=== PATIENT | female | born 1995 | race Caucasian/White ===

== ENCOUNTER 2024-01-06 16:44 | Observation (INO) | payer OTHER, SELFPAY ==
--- NOTE | ~2024-01-06 | XR_ITS ---
CHEST RADIOGRAPH, PA AND LATERAL CLINICAL HISTORY: cough, CHEST PAINS, HX OF ASTHMA . COMPARISON: None available TECHNIQUE: PA and lateral views of the chest. FINDINGS The cardiomediastinal silhouette is unremarkable. The lungs are clear. Visualized osseous structures and soft tissues are unremarkable. IMPRESSION: No focal infiltrate or effusion. Reviewed, dictated and finalized at location A. IC SERVICES ASSISTANT
--- NOTE | ~2024-01-06 | CT_ITS ---
Clinical Indication: Shortness of breath CT Scan of the Chest with Contrast: Technique: Contiguous sections were acquired throughout the chest after intravenous administration of 100 cc of Omnipaque 350. Dose reduction technique was used on this scan by utilizing automated expos ure control and iterative reconstruction technique. The dose-length product (DLP) was 204.79 mGy-cm. Findings: There is no evidence of any significant mediastinal, hilar or axillary lymphadenopathy. There is no f illing defect in the pulmonary arterial tree to suggest pulmonary embolus. There is no evidence of ao rtic dissection or aneurysm. No pericardial effusion. Minimal left pleural effusion present. No right pleural effusion. There is patchy left lower lobe consolidation, compatible with pneumonia. Remainder of the lungs are clear. Images through the upper abdomen reveal no abnormalities. Impression: No evidence of pulmonary embolus, aortic dissection, or aortic aneurysm. Left lower lobe pneumonia. Minimal left pleural effusion. Reviewed, dictated and finalized at [facility]. STAGE ARCHITECT Impression: No evidence of pulmonary embolus, aortic dissection, or aortic aneurysm. Left lower lobe pneumonia. Minimal left pleural effusion.
[2024-01-06 16:47] VITALS: BP 126/75; PULSE 92; RESP 16; TEMP 36.4; O2SAT 100
--- NOTE | 2024-01-06 16:49 | ED_ITS ---
HPI - URI/Sore Throat General Chief Complaint: Upper Respiratory Infection <FRANCISCO Caro Last Filed: 01/08/24 09:09> Stated Complaint: cough congestion <FRANCISCO Caro Last Filed: 01/08/24 09:09> Time Seen by Provider: 01/06/24 16:49 <FRANCISCO Caro Last Filed: 01/08/24 09:09> Focused HPI: this is a 28-year-old female that presents to the emergency department for cold symptoms present over the last couple of weeks. Reports cough, congestion, rhinorrhea. Denies fevers. GENERAL: Well-appearing, well-nourished, and in no acute distress. HEAD: Normocephalic, atraumatic. CHEST: No respiratory distress. Expiratory wheezing HEART: Regular rate and rhythm.? NEURO: ?Alert and oriented x3. Patient screened in triage and initial orders placed.? ?Additional care and disposition to be based upon?diagnostic testing and treatment. <FRANCISCO Caro Last Filed: 01/08/24 09:09> Focused HPI: this is a 28-year-old female that presents to the emergency department for cold symptoms present over the last couple of weeks. Reports cough, congestion, rhinorrhea. Denies fevers. GENERAL: Well-appearing, well-nourished, and in no acute distress. HEAD: Normocephalic, atraumatic. CHEST: No respiratory distress. Expiratory wheezing HEART: Regular rate and rhythm.? NEURO: ?Alert and oriented x3. Patient screened in triage and initial orders placed.? ?Additional care and disposition to be based upon?diagnostic testing and treatment. <FRANCISCO Morgan Last Filed: 01/07/24 03:31> Source: patient <FRANCISCO Morgan Last Filed: 01/07/24 03:31> Mode of arrival: ambulatory <FRANCISCO Morgan Last Filed: 01/07/24 03:31> Limitations: no limitations <FRANCISCO Morgan Last Filed: 01/07/24 03:31> History of Present Illness HPI Narrative: Agree with above HPI. History of asthma. States she has been sick for 2 weeks. Has only been taking Tylenol and ibuprofen at home. Reports persistent fevers, chest tightness, shortness of breath. Denies sick contacts. Patient is currently . Patient was seen at [place] the ED 2 days ago, had negative viral swabs, negative chest x-ray and was discharged home with diagnosis of viral infection. <Kamryn Stone PA-C - Last Filed: 01/07/24 03:31> Related Data Home Medications: Home Medications Medication Instructions Recorded Confirmed albuterol sulfate 90 mcg/actuation 90 mcg inhalation PRN PRN 01/08/24 01/08/24 aerosol inhaler Shortness Of Breath Or Wheezing <Zoila Francisco PA-C - Last Filed: 01/08/24 09:09> Allergies/Adverse Reactions: Allergies Allergy/AdvReac Type Severity Reaction Status Date / Time No Known Allergies Allergy Verified 01/07/24 05:27 <Zoila Francisco PA-C - Last Filed: 01/08/24 09:09> Review of Systems Review of Systems: All systems reviewed & are unremarkable except as noted in HPI. <Kamryn Stone PA-C - Last Filed: 01/07/24 03:31> All systems reviewed & are unremarkable except as noted in HPI and below <Kamryn Stone PA-C - Last Filed: 01/07/24 03:31> PMFSH Past Medical History Medical History: Medical History Asthma <Zoila Francisco PA-C - Last Filed: 01/08/24 09:09> Social History Social History: Social History Smoking status: Never smoker Alcohol intake: never Substance use: never Do You Feel Safe in your Home?: Yes Lack of Transportation: No Lack of Food: Never True Current Housing: I Have Housing Concerned About Future Housing: No Difficulty Paying Gas/Electric Bills: No Difficulty Paying for Meds: No Currently Unemployed: No Education: High School Diploma/GED Difficulty w/ Childcare or Family Care: No Spiritual care concerns: No <Zoila Francisco PA-C - Last Filed: 01/08/24 09:09> Exam Narrative: GENERAL: Mildly ill appearing, well-nourished, non-toxic, in no acute distress. HEAD: Normocephalic, atraumatic. RESPIRATORY: Airway patent, respirations nonlabored. Scattered expiratory wheezing. Frequent coughing. No distress. CARDIOVASCULAR: Tachycardic with regular rhythm without murmurs, rubs, or gallops. ABDOMINAL: Soft, nontender, nondistended. Normoactive BS. MUSCULOSKELETAL: Moves all extremities. No gross deformities. No peripheral edema. SKIN: Warm, dry, somewhat flushed appearing. NEURO: A&O X3. Speech clear. No ataxic movements. PSYCHIATRIC: Appropriate mood and affect. Normal interaction. <FRANCISCO Morgan Last Filed: 01/07/24 03:31> Course Vital Signs Vital signs: Vital Signs Temperature 97.6 F 01/06/24 16:47 Pulse Rate 92 01/06/24 16:47 Respiratory Rate 16 01/06/24 16:47 Blood Pressure 126/75 01/06/24 16:47 Pulse Oximetry 100 01/06/24 16:47 Temperature 97.1 F L 01/08/24 06:00 Pulse Rate 86 01/08/24 06:00 Respiratory Rate 18 01/08/24 06:00 Blood Pressure 108/72 01/08/24 06:00 Pulse Oximetry 96 01/08/24 06:00 Oxygen Delivery Room Air 01/07/24 20:36 <Zoila Francisco PA-C - Last Filed: 01/08/24 09:09> Vital Signs Temperature 97.6 F 01/06/24 16:47 Pulse Rate 92 01/06/24 16:47 Respiratory Rate 16 01/06/24 16:47 Blood Pressure 126/75 01/06/24 16:47 Pulse Oximetry 100 01/06/24 16:47 Temperature 97.1 F L 01/08/24 06:00 Pulse Rate 86 01/08/24 06:00 Respiratory Rate 18 01/08/24 06:00 Blood Pressure 108/72 01/08/24 06:00 Pulse Oximetry 96 01/08/24 06:00 Oxygen Delivery Room Air 01/07/24 20:36 <Kamryn Stone PA-C - Last Filed: 01/07/24 03:31> MDM - URI/Sore Throat MDM Narrative Medical decision making narrative: Patient presented to ED with 2 week history of URI symptoms, persistent fevers. History of asthma. Patient tachycardic and febrile at the time of my evaluation. Oxygen ranging from 92-95% on room air. There was expiratory wheezing noted on exam. Continuous nebulizer treatment ordered. Laboratory studies fairly unremarkable. No leukocytosis. Stable H&H. Stable electrolytes. Viral swabs are negative. Chest x-ray is clear. EKG with normal sinus rhythm, no significant ST changes. Troponin is undetectable. D-dimer did result elevated to 1.18. CTA of chest obtained and showing LLQ PNA. No PE. Consistent with clinical picture. Patient will be started on abx. Patient's heart rate persistently in the 120s after nebulizer treatment. She do es feel as though her heart is racing. Persistent tachypnea. Clinically, patient looks unwell. At this time, patient meeting sepsis criteria. Will order additional fluids, blood cx, start iv abx and admit for further eval. Discussed case with Dr. Davenport, hospitalist, accepted patient for admission. Patient in agreement with plan and admission. <Kamryn Stone PA-C - Last Filed: 01/07/24 03:31> Medical Records Attestation: I reviewed the patient's medical records. <Kamryn Stone PA-C - Last Filed: 01/07/24 03:31> Lab Data Attestation: I reviewed the patient's lab results. <Kamryn Stone PA-C - Last Filed: 01/07/24 03:31> Result diagrams: 01/07/24 00:25 01/07/24 00:25 <Zoila Francisco PA-C - Last Filed: 01/08/24 09:09> Labs: Lab Results 01/06/24 01/07/24 01/07/24 Range/Units 16:58 00:25 01:27 WBC 8.5 (4.5-10.0) K/mm3 RBC 3.86 L (4.2-5.4) M/mm3 Hgb 11.7 L (12.0-15.0) g/dL Hct 34.4 L (37.0-47.0) % MCV 89.1 (80-100) fl MCH 30.3 (26-34) pg MCHC 34.0 (32-36) g/dl RDW 11.8 (11.5-14.5) % Plt Count 351 (150-375) k/mm3 MPV 9.0 (7.4-10.4) fl Immature Gran % (Auto) 0.5 (0-0.5) % Neut % (Auto) 76.3 H (45.5-73.1) % Lymph % (Auto) 13.5 L (18.3-44.2) % [place] % (Auto) 5.6 (2.6-8.5) % Eos % (Auto) 3.6 (0-4.4) % Baso % (Auto) 0.5 (0.2-1.2) % Lymph # (Auto) 1.14 (0.9-3.2) K/mm3 [place] # (Auto) 0.5 (0.1-0.6) K/mm3 Eos # (Auto) 0.3 (0-0.3) K/mm3 Baso # (Auto) 0.0 (0.0-0.1) K/mm3 Abs Immat Gran (auto) 0.04 H (0.00-0.031) K/mm3 Absolute Neuts (auto) 6.5 (1.3-6.7) K/mm3 Absolute Nucleated RBC 0.000 (0.0-0.012) K/mm3 Nucleated RBC % 0.0 (0.0-0.2) % PT 14.7 (11.1-14.7) Seconds INR 1.1 APTT 32.3 (22.3-36.8) Seconds D-Dimer 1.18 H (<0.48) ug/mL Sodium 137 (137-145) mmol/L Potassium 4.6 (3.4-5.0) mmol/L Chloride 102 (98-107) mmol/L Carbon Dioxide 26 (22-30) mmol/L Anion Gap 9 (4-12) mmol/L BUN 7 (7-17) mg/dL Creatinine 0.60 L (0.7-1.0) mg/dL Estim Creat Clear Calc 104 ml/min Estimated GFR > 60 (59 - ) Glucose 126 H (65-110) mg/dL Calcium 9.4 (8.4-10.2) mg/dL Total Bilirubin 0.4 (0.2-1.3) mg/dL AST 22 (14-36) U/L ALT 15 (6-35) U/L Alkaline Phosphatase 57 (38-126) U/L Troponin I < 0.012 (0.000-0.034) ng/mL Total Protein 8.0 (6.3-8.2) g/dL Albumin 4.3 (3.5-5.1) g/dL POC Urine HCG, Qual Negative (Negative) Influenza A (RT-PCR) Negative (Negative) Influenza B (RT-PCR) Negative (Negative) RSV (RT-PCR) Negative (Negative) SARS-CoV-2 RNA (RT-PCR) Negative (Negative) <Zoila Francisco PA-C - Last Filed: 01/08/24 09:09> Lab Results 01/06/24 01/07/24 01/07/24 Range/Units 16:58 00:25 01:27 WBC 8.5 (4.5-10.0) K/mm3 RBC 3.86 L (4.2-5.4) M/mm3 Hgb 11.7 L (12.0-15.0) g/dL Hct 34.4 L (37.0-47.0) % MCV 89.1 (80-100) fl MCH 30.3 (26-34) pg MCHC 34.0 (32-36) g/dl RDW 11.8 (11.5-14.5) % Plt Count 351 (150-375) k/mm3 MPV 9.0 (7.4-10.4) fl Immature Gran % (Auto) 0.5 (0-0.5) % Neut % (Auto) 76.3 H (45.5-73.1) % Lymph % (Auto) 13.5 L (18.3-44.2) % [place] % (Auto) 5.6 (2.6-8.5) % Eos % (Auto) 3.6 (0-4.4) % Baso % (Auto) 0.5 (0.2-1.2) % Lymph # (Auto) 1.14 (0.9-3.2) K/mm3 [place] # (Auto) 0.5 (0.1-0.6) K/mm3 Eos # (Auto) 0.3 (0-0.3) K/mm3 Baso # (Auto) 0.0 (0.0-0.1) K/mm3 Abs Immat Gran (auto) 0.04 H (0.00-0.031) K/mm3 Absolute Neuts (auto) 6.5 (1.3-6.7) K/mm3 Absolute Nucleated RBC 0.000 (0.0-0.012) K/mm3 Nucleated RBC % 0.0 (0.0-0.2) % PT 14.7 (11.1-14.7) Seconds INR 1.1 APTT 32.3 (22.3-36.8) Seconds D-Dimer 1.18 H (<0.48) ug/mL Sodium 137 (137-145) mmol/L Potassium 4.6 (3.4-5.0) mmol/L Chloride 102 (98-107) mmol/L Carbon Dioxide 26 (22-30) mmol/L Anion Gap 9 (4-12) mmol/L BUN 7 (7-17) mg/dL Creatinine 0.60 L (0.7-1.0) mg/dL Estim Creat Clear Calc 104 ml/min Estimated GFR > 60 (59 - ) Glucose 126 H (65-110) mg/dL Calcium 9.4 (8.4-10.2) mg/dL Total Bilirubin 0.4 (0.2-1.3) mg/dL AST 22 (14-36) U/L ALT 15 (6-35) U/L Alkaline Phosphatase 57 (38-126) U/L Troponin I < 0.012 (0.000-0.034) ng/mL Total Protein 8.0 (6.3-8.2) g/dL Albumin 4.3 (3.5-5.1) g/dL POC Urine HCG, Qual Negative (Negative) Influenza A (RT-PCR) Negative (Negative) Influenza B (RT-PCR) Negative (Negative) RSV (RT-PCR) Negative (Negative) SARS-CoV-2 RNA (RT-PCR) Negative (Negative) <Kamryn Stone PA-C - Last Filed: 01/07/24 03:31> Imaging Data Attestation: I personally reviewed and interpreted this imaging study as follows: <Kamryn Stone PA-C - Last Filed: 01/07/24 03:31> Radiologist's impression: STAT RAD CTA Chest: Impression: No acute pulmonary embolism. Airspace consolidation in the left lower lobe, concerning for pneumonia. ITS Impressions Chest X-Ray 01/06/24 18:24 IMPRESSION: No focal infiltrate or effusion. <Zoila Francisco PA-C - Last Filed: 01/08/24 09:09> STAT RAD CTA Chest: Impression: No acute pulmonary embolism. Airspace consolidation in the left lower lobe, concerning for pneumonia. <Kamryn Stone PA-C - Last Filed: 01/07/24 03:31> ECG Data EKG #1: Attestation: I personally reviewed and interpreted this ECG as follows: <Kamryn Stone PA-C - Last Filed: 01/07/24 03:31> ECG completion date: 01/07/24 <Kamryn Stone PA-C - Last Filed: 01/07/24 03:31> ECG completion time: 00:15 <Kamryn Stone PA-C - Last Filed: 01/07/24 03:31> EKG Interpretation: normal rate (93), sinus rhythm, no ST changes and other (baseline artifact) <Kamryn Stone PA-C - Last Filed: 01/07/24 03:31> Critical Care Time Critical Care Time Critical Care Time: No <Zoila Francisco PA-C - Last Filed: 01/08/24 09:09> Discharge Plan Discharge Clinical Impression: Pneumonia Qualifiers: Pneumonia type: due to unspecified organism Laterality: left Lung location: low er lobe of lung Qualified Code(s): J18.9 - Pneumonia, unspecified organism Sepsis Qualifiers: Sepsis type: sepsis due to unspecified organism Sepsis acute organ dysfunction status: unspecified Qualified Code(s): A41.9 - Sepsis, unspecified organism Asthma Qualifiers: Asthma severity: unspecified severity Asthma persistence: unspecified Asthma complication type: unspecified Qualified Code(s): J45.909 - Unspecified asthma, uncomplicated <Zoila Francisco PA-C - Last Filed: 01/08/24 09:09> Patient Disposition: Still a Patient <Zoila Francisco PA-C - Last Filed: 01/08/24 09:09> Condition: Stable <Zoila Francisco PA-C - Last Filed: 01/08/24 09:09>
--- NOTE | 2024-01-06 17:05 | PCRCNOTE ---
Tx given in ED room 18; Pt. not assigned a room yet.
[2024-01-06 17:08] VITALS: PULSE 92; RESP 18
[2024-01-06] MEDS: IPRATROPIUM 0.5 MG/ALBUTEROL SULFATE 2.5 MG AMPUL.NEB 3 ML INHALATION (17:08)
[2024-01-06 17:18] VITALS: PULSE 100; RESP 18
[2024-01-06 17:55] LABS: Influenza A QL RT-PCR Negative (Negative); Influenza B QL RT-PCR Negative (Negative); RSV RNA, RT-PCR Negative (Negative); SARS-CoV-2 RNA PCR Negative (Negative)
[2024-01-06 19:28] VITALS: BP 111/69; PULSE 122; RESP 24; TEMP 38.3; O2SAT 99
[2024-01-06] MEDS: predniSONE 20 MG TABLET 40 MG PO (22:51)
[2024-01-07] VITALS (16 sets, daily range): BP systolic 98–124; BP diastolic 54–73; PULSE 92–124; RESP 18–22; TEMP 36–37.8; O2SAT 92–97
--- NOTE | 2024-01-07 00:06 | ECG_ITS ---
Test Date: 2024-01-07 00:15:57 Measurements Intervals [place] Rate: 93 P: 56 OR: 158 QRS: 65 QRSD: 79 T: 44 QT: 328 QTc: 409 Interpretive Statements SINUS RHYTHM BASELINE ARTIFACT- I, II, III, AVR, AVL, AVF NORMAL ECG No previous ECG available for comparison Electronically Signed On 01-07-2024 05:34:54 SEARCH AND RESCUE OFFICER by Gama Lopez D.O.
[2024-01-07] MEDS: ACETAMINOPHEN 500 MG TABLET 1000 MG PO (00:22)
[2024-01-07] MEDS: SODIUM CHLORIDE 0.9% IV 1,000 ML 999 ML IV CONT ×2 (00:23→03:59)
[2024-01-07] MEDS: IPRATROPIUM BR 0.02% INH SOLN 0.5 MG/2.5 ML VIAL 1.5 MG INHALATION (00:30)
[2024-01-07] MEDS: LEVALBUTEROL NEB 1.25 MG/3 ML 2.5 MG INHALATION (00:30)
[2024-01-07 00:43] LABS: Alanine Aminotransferase 15 U/L (6-35); Albumin Level 4.3 g/dL (3.5-5.1); Alkaline Phosphatase 57 U/L (38-126); Anion Gap 9 mmol/L (4-12); Aspartate Amino Transferase 22 U/L (14-36); Bilirubin,Total 0.4 mg/dL (0.2-1.3); Blood Urea Nitrogen 7 mg/dL (7-17); Calcium 9.4 mg/dL (8.4-10.2); Carbon Dioxide 26 mmol/L (22-30); Chloride 102 mmol/L (98-107); Estimated CRCL calculation 104 ml/min; Estimated Glomerular Filt Rate > 60; Glucose 126 mg/dL (65-110); Potassium 4.6 mmol/L (3.4-5.0); Sodium 137 mmol/L (137-145)
[2024-01-07 00:45] LABS: INR 1.1; Prothrombin Time 14.7 Seconds (11.1-14.7)
[2024-01-07 00:46] LABS: Basophils Percent Auto 0.5 % (0.2-1.2); Eosinophils Absolute Auto 0.3 K/mm3 (0-0.3); Eosinophils Percent Auto 3.6 % (0-4.4); Hematocrit 34.4 % (37.0-47.0); Hemoglobin 11.7 g/dL (12.0-15.0); Immature Granulocyte Absolute 0.04 K/mm3 (0.00-0.031); Immature Granulocyte Percent A 0.5 % (0-0.5); Lymphocytes Absolute Auto 1.14 K/mm3 (0.9-3.2); Lymphocytes Percent Auto 13.5 % (18.3-44.2); Mean Corpuscular Hemoglobin 30.3 pg (26-34); Mean Corpuscular Volume 89.1 fl (80-100); Monocytes Absolute Auto 0.5 K/mm3 (0.1-0.6); Monocytes Percent Auto 5.6 % (2.6-8.5); Neutrophils Absolute Auto 6.5 K/mm3 (1.3-6.7); Neutrophils Percent Auto 76.3 % (45.5-73.1); Partial Thromboplastin Time 32.3 Seconds (22.3-36.8); Platelet Count Result 351 k/mm3 (150-375); Red Blood Count 3.86 M/mm3 (4.2-5.4); Red Cell Distribution Width 11.8 % (11.5-14.5); White Blood Count 8.5 K/mm3 (4.5-10.0)
[2024-01-07 00:54] LABS: Troponin I < 0.012 ng/mL (0.000-0.034)
[2024-01-07 00:56] LABS: D Dimer 1.18 ug/mL (<0.48)
[2024-01-07 01:28] LABS: BEDSIDEPREGUCG Negative (Negative)
[2024-01-07] MEDS: AZITHROMYCIN 500 MG/NS 250 ML 500 MG/250 ML BAG 250 MG IVPB (05:57)
[2024-01-07] MEDS: SODIUM CHLORIDE 0.9% IV 1,000 ML 75 ML IV CONT ×2 (05:57→21:07)
[2024-01-07] MEDS: IPRATROPIUM 0.5 MG/ALBUTEROL SULFATE 2.5 MG AMPUL.NEB 3 ML INHALATION ×3 (07:12→20:34)
--- NOTE | 2024-01-07 07:28 | P.HP_ITS ---
H&P: HPI History of Present Illness Date/Time: 01/07/24 07:28 Chief Complaint: Sore throat Upper respiratory infection Narrative: This is a 28-year-old female with a significant past medical history of asthma who presented to the hospital with chief complaint of sore throat and upper respiratory infection. Patient reports the following history of presenting illness. Patient states that she has been sick for the past 2 weeks and originally presented to [place] ED 2 days ago and had negative viral swab, negative chest x-ray and was discharged home with viral infection. She presented today with heart rate of 122, temperature 101, respiratory rate 24 meeting sepsis criteria. Patient denies any body aches, nausea, vomiting, diarrhea, abdominal pain, chest pain, or shortness of breath. She does report f ever with chills and generalized malaise. Workup in the hospital included a chest x-ray which was negative for infiltrate or effusion. Chest CTA was negative for PE, aortic dissection, aortic aneurysm, left lower lobe pneumonia, minimal left pleural effusion. Initial labs showed a normal white blood cell count of 8.5, hemoglobin 11.7, D-dimer 1.18, creatinine 0.60, troponin negative. Respiratory panel was negative for influenza a and B, RSV, COVID. Blood cultures were obtained and are pending. EKG showed sinus rhythm with a rate of 93, QTC 409. Patient was started on prednisone, given DuoNeb, Xopenex, Atrovent breathing treatments, given 2 L normal saline, started on Rocephin and azithromycin. Review of Systems Review of Systems: All systems reviewed & are unremarkable except as noted in HPI and below Constitutional: Constitutional: Reports as per HPI and Reports no additional constitutional complaints Eyes: Eyes: Reports as per HPI and Reports no additional eye complaints ENT: Reports system reviewed and no additional complaints, except as documented and Reports as per HPI Cardiovascular: Cardiovascular: Reports as per HPI and Reports no additional cardiovascular complaints Respiratory: Respiratory: Reports as per HPI and Reports no additional respiratory complaints Gastrointestinal: Gastrointestinal: Reports as per HPI and Reports no additional gastrointestinal complaints Genitourinary: Genitourinary: Reports no additional female genitourinary complaints and Reports as per HPI Musculoskeletal: Musculoskeletal: Reports no additional musculoskeletal complaints and Reports as per HPI Integumentary/Breasts: Skin/Breast: Reports system reviewed and no additional complaints, except as docu and Reports as per HPI Neurologic: Reports system reviewed and no additional complaints, except as documented and Reports as per HPI Psychiatric: Psychiatric: Reports no additional psychiatric complaints and Reports as per HPI [facility] Past Medical History Medical History Asthma Social History Social History Smoking status: Never smoker Alcohol intake: never Substance use: never Do You Feel Safe in your Home?: Yes Lack of Transportation: No Lack of Food: Never True Current Housing: I Have Housing Concerned About Future Housing: No Difficulty Paying Gas/Electric Bills: No Difficulty Paying for Meds: No Currently Unemployed: No Education: High School Diploma/GED Difficulty w/ Childcare or Family Care: No Spiritual care concerns: No Meds Home Medications and Allergies Allergies Allergy/AdvReac Type Severity Reaction Status Date / Time No Known Allergies Allergy Verified 01/07/24 05:27 Vital Signs Vital Signs - 24 hr 01/06/24 16:47 01/06/24 17:08 01/06/24 17:18 Temperature 97.6 F Pulse Rate 92 92 100 Respiratory Rate 16 18 18 Blood Pressure 126/75 Pulse Oximetry 100 Oxygen Delivery 01/06/24 19:28 01/07/24 00:05 01/07/24 00:32 Temperature 101.0 F H 100.1 F H Pulse Rate 122 H 101 H 92 Respiratory Rate 24 H 18 18 Blood Pressure 111/69 105/69 Pulse Oximetry 99 94 Oxygen Delivery 01/07/24 00:32 01/07/24 00:15 01/07/24 02:00 Temperature Pulse Rate 98 124 H Respiratory Rate 22 H 20 Blood Pressure 112/73 98/54 L Pulse Oximetry 96 92 Oxygen Delivery Room Air 01/07/24 02:40 01/07/24 03:46 01/07/24 05:29 Temperature 98.1 F 96.8 F L Pulse Rate 114 H 104 H Respiratory Rate 18 Blood Pressure 117/70 114/66 Pulse Oximetry 95 97 Oxygen Delivery 01/07/24 06:50 Temperature Pulse Rate Respiratory Rate Blood Pressure Pulse Oximetry Oxygen Delivery Room Air Exam Narrative: General: In no acute distress, well nourished Head: atraumatic, no encephalopathy Eyes: PERRLA, sclera clear ENT: moist mucous membranes, nasal passages clear Neck: supple, no JVD, no adenopathy, trachea midline Cardiac: Normal S1 and S2. No murmur, gallops or friction rubs, peripheral pulses intact. Respiratory:Expiratory wheezing with rhonchi throughout all lung lipscomb, currently on room air Gastrointestinal: soft, non-distended, non-tender, normoactive bowel sounds. : voiding without difficulty. Extremities: moves all extremities well, no edema, good ROM, strength 5/5 Skin: clean, dry, intact. No wounds or lesions. Neuro: Alert and oriented x4, cranial nerves intact, no neuro deficits. Psych: normal mood, normal affect, interactive H&P: Results Labs Labs: Short CBC 01/07/24 Range/Units 00:25 WBC 8.5 (4.5-10.0) K/mm3 Hgb 11.7 L (12.0-15.0) g/dL Hct 34.4 L (37.0-47.0) % Plt Count 351 (150-375) k/mm3 BMP 01/07/24 00:25 Sodium 137 Potassium 4.6 Chloride 102 Carbon Dioxide 26 BUN 7 Creatinine 0.60 L Glucose 126 H Calcium 9.4 Cardiac Enzymes 01/07/24 Range/Units 00:25 Troponin I < 0.012 (0.000-0.034) ng/mL Liver Function 01/07/24 Range/Units 00:25 Total Bilirubin 0.4 (0.2-1.3) mg/dL AST 22 (14-36) U/L ALT 15 (6-35) U/L Alkaline Phosphatase 57 (38-126) U/L Albumin 4.3 (3.5-5.1) g/dL Imaging Chest x-ray: Radiologist's impression: CHEST RADIOGRAPH, PA AND LATERAL CLINICAL HISTORY: cough, CHEST PAINS, HX OF ASTHMA . COMPARISON: None available TECHNIQUE: PA and lateral views of the chest. FINDINGS The cardiomediastinal silhouette is unremarkable. The lungs are clear. Visualized osseous structures and soft tissues are unremarkable. IMPRESSION: No focal infiltrate or effusion. Reviewed, dictated and finalized at location A. [place] MEDIA PROJECT MANAGER Chest CTA: Radiologist's impression: CT Scan of the Chest with Contrast: Technique: Contiguous sections were acquired throughout the chest after intravenous administration of 100 cc of Omnipaque 350. Dose reduction technique was used on this scan by utilizing automated exposure control and iterative reconstruction technique. The dose-length product (DLP) was 204.79 mGy-cm. Findings: There is no evidence of any significant mediastinal, hilar or axillary lymphadenopathy. There is no filling defect in the pulmonary arterial tree to suggest pulmonary embolus. There is no evidence of aortic dissection or aneurysm. No pericardial effusion. Minimal left pleural effusion present. No right pleural effusion. There is patchy left lower lobe consolidation, compatible with pneumonia. Remainder of the lungs are clear. Images through the upper abdomen reveal no abnormalities. Impression: No evidence of pulmonary embolus, aortic dissection, or aortic aneurysm. Left lower lobe pneumonia. Minimal left pleural effusion. Reviewed, dictated and finalized at location M. [place] MEDIA PROJECT MANAGER Assessment and Plan Assessment and plan (1) Sepsis: Qualifiers: Sepsis acute organ dysfunction status: unspecified Sepsis type: sepsis due to unspecified organism Qualified Code(s): A41.9 - Sepsis, unspecified organism Code(s): A41.9 - Sepsis, unspecified organism Status: Acute Assessment and Plan: * Meeting sepsis criteria with heart rate in the 120s, tachypnea, initial temperature of 101?, community-acquired pneumonia * She was given 2 L of normal saline while in the ED with improvement in her vital signs * Blood cultures were obtained and pending * She was started on Rocephin and azithromycin (2) Pneumonia: Qualifiers: Laterality: left Lung location: lower lobe of lung Pneumonia type: due to unspecified organism Qualified Code(s): J18.9 - Pneumonia, unspecified organism Code(s): J18.9 - Pneumonia, unspecified organism Status: Acute Assessment and Plan: * Chest x-ray was essentially negative * Chest CTA was negative for PE, aortic dissection, aortic aneurysm did show a left lower lobe pneumonia, minimal left pleural effusion. * Blood cultures were obtained and pending * Likely community-acquired pneumonia * Will check MRSA * Will also check urine strep, urine Legionella, mycoplasma * Continue Rocephin and azithromycin * Continue DuoNebs * Continue prednisone (3) Asthma: Qualifiers: Asthma complication type: unspecified Asthma persistence: unspecified Asthma severity: unspecified severity Qualified Code(s): J45.909 - Unspecified asthma, uncomplicated Code(s): J45.909 - Unspecified asthma, uncomplicated Status: Acute Assessment and Plan: * Continue prednisone and DuoNebs Quality VTE Prophylaxis VTE prophylaxis: pharmacologic ordered Hospitalist MIPS Advance Care Plan I have confirmed that the patient's Advanced Care Plan is present, code status is documented, or surrogate decision maker is listed in patient medical record.: Yes Medication Reconciliation I have utilized all available resources to obtain, update and review the patients current medications (includes all prescriptions, OTC, herbals, cannabis, and nutritional supplements).: Yes
[2024-01-07] MEDS: ENOXAPARIN 40 MG/0.4 ML SYRINGE SUB-Q (10:13)
[2024-01-07 15:50] LABS: MRSA (PCR) NOT DETECTED (NOT DETECTE)
[2024-01-08 01:25] VITALS: PULSE 87; RESP 18
[2024-01-08 01:35] VITALS: PULSE 89; RESP 18
[2024-01-08] MEDS: IPRATROPIUM 0.5 MG/ALBUTEROL SULFATE 2.5 MG AMPUL.NEB 3 ML INHALATION ×2 (04:42→07:13)
[2024-01-08 06:00] VITALS: BP 108/72; PULSE 86; RESP 18; TEMP 36.2; O2SAT 96
[2024-01-08] MEDS: AZITHROMYCIN 500 MG/NS 250 ML 500 MG/250 ML BAG 250 MG IVPB (06:35)
[2024-01-08 07:13] VITALS: PULSE 103; RESP 18; O2SAT 95
[2024-01-08 07:21] VITALS: PULSE 107; RESP 18
[2024-01-08] MEDS: ONDANSETRON INJ 4 MG/2 ML VIAL IV PUSH (08:55)
[2024-01-08] MEDS: SODIUM CHLORIDE 0.9% IV 1,000 ML 75 ML IV CONT (08:59)
[2024-01-08 10:22] LABS: Basophils Percent Auto 0.7 % (0.2-1.2); Eosinophils Absolute Auto 0.3 K/mm3 (0-0.3); Eosinophils Percent Auto 4.2 % (0-4.4); Hematocrit 31.1 % (37.0-47.0); Hemoglobin 10.1 g/dL (12.0-15.0); Immature Granulocyte Absolute 0.04 K/mm3 (0.00-0.031); Immature Granulocyte Percent A 0.7 % (0-0.5); Lymphocytes Absolute Auto 1.12 K/mm3 (0.9-3.2); Lymphocytes Percent Auto 18.7 % (18.3-44.2); Mean Corpuscular HGB Conc 32.5 g/dl (32-36); Mean Corpuscular Hemoglobin 29.8 pg (26-34); Mean Corpuscular Volume 91.7 fl (80-100); Mean Platelet Volume 8.8 fl (7.4-10.4); Monocytes Absolute Auto 0.2 K/mm3 (0.1-0.6); Monocytes Percent Auto 3.3 % (2.6-8.5); Neutrophils Absolute Auto 4.3 K/mm3 (1.3-6.7); Neutrophils Percent Auto 72.4 % (45.5-73.1); Platelet Count Result 289 k/mm3 (150-375); Red Blood Count 3.39 M/mm3 (4.2-5.4); Red Cell Distribution Width 12.1 % (11.5-14.5)
[2024-01-08 10:37] LABS: Alanine Aminotransferase 13 U/L (6-35); Albumin Level 3.7 g/dL (3.5-5.1); Alkaline Phosphatase 52 U/L (38-126); Anion Gap 9 mmol/L (4-12); Aspartate Amino Transferase 18 U/L (14-36); Bilirubin,Total 0.1 mg/dL (0.2-1.3); Blood Urea Nitrogen 8 mg/dL (7-17); Calcium 8.6 mg/dL (8.4-10.2); Carbon Dioxide 25 mmol/L (22-30); Chloride 105 mmol/L (98-107); Estimated CRCL calculation 123 ml/min; Estimated Glomerular Filt Rate > 60; Glucose 112 mg/dL (65-110); Potassium 3.9 mmol/L (3.4-5.0); Sodium 139 mmol/L (137-145)
--- NOTE | 2024-01-08 11:04 | P.PNIM_ITS ---
Subjective Date/time seen: 01/08/24 11:04 Objective Data Vital Signs Vital Signs: Vital Signs - 24 hr 01/07/24 12:50 01/07/24 13:00 01/07/24 16:00 Temperature 97.3 F L Pulse Rate 93 94 95 Respiratory Rate 18 18 18 Blood Pressure 111/68 Pulse Oximetry 97 Oxygen Delivery Fraction of Inspired Oxygen 01/07/24 20:36 01/07/24 20:37 01/07/24 22:40 Temperature 97.8 F Pulse Rate 96 96 116 H Respiratory Rate 18 18 18 Blood Pressure 124/63 Pulse Oximetry 94 96 Oxygen Delivery Room Air Fraction of Inspired Oxygen 01/08/24 01:25 01/07/24 20:47 01/08/24 01:35 Temperature Pulse Rate 87 99 89 Respiratory Rate 18 18 18 Blood Pressure Pulse Oximetry Oxygen Delivery Fraction of Inspired Oxygen 01/08/24 06:00 01/08/24 07:13 01/08/24 07:13 Temperature 97.1 F L Pulse Rate 86 103 H Respiratory Rate 18 18 Blood Pressure 108/72 Pulse Oximetry 96 95 Oxygen Delivery Room Air Fraction of Inspired Oxygen 01/08/24 07:21 01/08/24 09:00 Temperature Pulse Rate 107 H Respiratory Rate 18 Blood Pressure Pulse Oximetry Oxygen Delivery Room Air Fraction of Inspired Oxygen Intake/Output Intake/Output: Intake & Output 01/05/24 01/06/24 01/07/24 01/08/24 23:59 23:59 23:59 23:59 Intake Total 3900 1571 Balance 3900 1571 Meds/Results Medications: Active Medications Generic Name Dose Route Start Last Admin Trade Name Freq PRN Reason Stop Dose Admin Acetaminophen 650 mg 01/07/24 08:04 Acetaminophen 325 Mg Tablet PO Q4H PRN Mild Pain (1-3) or Fever Albuterol/Ipratropium 3 ml 01/07/24 08:00 01/08/24 07:13 Ipratropium 0.5 Mg/Albuterol Sulfate 2.5 Mg Ampul.Neb 3 Ml INHALATION 3 ml Q6HRT PAMELA Administration Enoxaparin Sodium 40 mg 01/07/24 09:00 01/08/24 08:56 Enoxaparin 40 Mg/0.4 Ml Syringe SUB-Q Not Given DAILY [facility] Ceftriaxone Sodium 1 gm in 50 mls @ 100 mls/hr 01/07/24 21:00 01/07/24 21:35 Rocephin 1 Gm/Ns 50 Ml IVPB Infused Q24H PAMELA Infusion Azithromycin 500 mg in 250 mls @ 250 mls/hr 01/08/24 06:00 01/08/24 07:35 Zithromax IVPB Infused Q24H PAMELA Infusion Sodium Chloride 1,000 mls @ 75 mls/hr 01/07/24 03:25 01/08/24 08:59 Normal Saline Iv IV CONT 75 mls/hr .[id number] PAMELA Administration Ibuprofen 600 mg 01/07/24 03:23 Ibuprofen 600 Mg Tablet PO Q6H PRN Pain (4-6) Ondansetron HCl 4 mg 01/07/24 03:23 01/08/24 08:55 Ondansetron Inj 4 Mg/2 Ml Vial IV PUSH 4 mg Q4H PRN Administration Nausea Radiology Results: ITS Impressions Chest X-Ray 01/06/24 18:24 IMPRESSION: No focal infiltrate or effusion. Chest CTA 01/07/24 05:58 Impression: No evidence of pulmonary embolus, aortic dissection, or aortic aneurysm. Left lower lobe pneumonia. Minimal left pleural effusion. Labs Labs: Laboratory Results - last 24 hr 01/07/24 01/08/24 14:32 09:57 Sodium 139 Potassium 3.9 Chloride 105 Carbon Dioxide 25 Anion Gap 9 BUN 8 Creatinine 0.50 L Estim Creat Clear Calc 123 Estimated GFR > 60 Glucose 112 H Calcium 8.6 Total Bilirubin 0.1 L AST 18 ALT 13 Alkaline Phosphatase 52 Total Protein 7.0 Albumin 3.7 Nasal MRSA (PCR) Not detected
--- NOTE | 2024-01-08 16:41 | P.DS_ITS ---
DS: Admitting Diagnosis Discharge Date 01/08/24 Admitting Diagnosis Sepsis Pneumonia Asthma DS: Discharge Diagnosis Discharge Diagnosis (1) Sepsis: Qualifiers: Sepsis acute organ dysfunction status: unspecified Sepsis type: sepsis due to unspecified organism Qualified Code(s): A41.9 - Sepsis, unspecified organism Code(s): A41.9 - Sepsis, unspecified organism Status: Acute (2) Pneumonia: Qualifiers: Laterality: left Lung location: lower lobe of lung Pneumonia type: due to unspecified organism Qualified Code(s): J18.9 - Pneumonia, unspecified organism Code(s): J18.9 - Pneumonia, unspecified organism Status: Acute (3) Asthma: Qualifiers: Asthma complication type: unspecified Asthma persistence: unspecified Asthma severity: unspecified severity Qualified Code(s): J45.909 - Unspecified asthma, uncomplicated Code(s): J45.909 - Unspecified asthma, uncomplicated Status: Acute DS: Summary Hospital Course Reason for hospitalization: Sepsis Pneumonia Asthma Hospital Course: This is a 28-year-old female with a significant past medical history of asthma who presented to the hospital with chief complaint of sore throat and upper respiratory infection. Patient reports the following history of presenting illness. Patient states that she has been sick for the past 2 weeks and originally presented to [place] [facility] 2 days ago and had negative viral swab, negative chest x-ray and was discharged home with viral infection. She presented today with heart rate of 122, temperature 101, respiratory rate 24 meeting sepsis criteria. Patient denies any body aches, nausea, vomiting, diarrhea, abdominal pain, chest pain, or shortness of breath. She does report fever with chills and generalized malaise. Workup in the hospital included a chest x-ray which was negative for infiltrate or effusion. Chest CTA was negative for PE, aortic dissection, aortic aneurysm, left lower lobe pneumonia, minimal left pleural effusion. Initial labs showed a normal white blood cell count of 8.5, hemoglobin 11.7, D-dimer 1.18, creatinine 0.60, troponin negative. Respiratory panel was negative for influenza a and B, RSV, COVID. Blood cultures were obtained and are pending. EKG showed sinus rhythm with a rate of 93, QTC 409. Patient was started on prednisone, given DuoNeb, Xopenex, Atrovent breathing treatments, given 2 L normal saline, started on Rocephin and azithro mycin. Patient is feeling much better today and that her breathing is not labored. She denies any new complaints today. Her vital signs are stable, she is afebrile, she is currently on room air. Her labs were reviewed and were unremarkable. She is stable for discharge at this time. We will go ahead and switch her to Augmentin and azithromycin for pneumonia coverage. She will also be given a Solu-Medrol Dosepak, DuoNeb, nebulizer, and albuterol rescue inhaler for use at home. She will need to follow up with her primary care physician in 1 week. Final diagnosis: Sepsis, community-acquired pneumonia, asthma exacerbation Status at Discharge Cognitive/behavioral status at discharge: Alert oriented x3 Functional status at discharge: independent ambulation Overall status at discharge: patient is progressing back to baseline Time Spent with Patient Time attestation: Total time spent providing and/or coordinating discharge services: Time spent: Greater than 30 minutes Exam Narrative: General: In no acute distress, well nourished Cardiac: Normal S1 and S2. No murmur, gallops or friction rubs, peripheral pulses intact. Respiratory: Mild expiratory wheeze, rhonchi, currently on room air Gastrointestinal: soft, non-distended, non-tender, normoactive bowel sounds. : voiding without difficulty. Neuro: Alert and oriented x4 DS: Data Data Completed and Pending Completed studies during hospitalization: Chest x-ray Chest CTA Pending studies at discharge: Blood cultures Labs on day of discharge: Labs from last 24 hours 01/08/24 09:57 WBC 6.0 RBC 3.39 L Hgb 10.1 L Hct 31.1 L MCV 91.7 MCH 29.8 MCHC 32.5 RDW 12.1 Plt Count 289 MPV 8.8 Immature Gran % (Auto) 0.7 H Neut % (Auto) 72.4 Lymph % (Auto) 18.7 [place] % (Auto) 3.3 Eos % (Auto) 4.2 Baso % (Auto) 0.7 Lymph # (Auto) 1.12 [place] # (Auto) 0.2 Eos # (Auto) 0.3 Baso # (Auto) 0.0 Abs Immat Gran (auto) 0.04 H Absolute Neuts (auto) 4.3 Absolute Nucleated RBC 0.000 Nucleated RBC % 0.0 Sodium 139 Potassium 3.9 Chloride 105 Carbon Dioxide 25 Anion Gap 9 BUN 8 Creatinine 0.50 L Estim Creat Clear Calc 123 Estimated GFR > 60 Glucose 112 H Calcium 8.6 Total Bilirubin 0.1 L AST 18 ALT 13 Alkaline Phosphatase 52 Total Protein 7.0 Albumin 3.7 Preliminary micro results at discharge 01/07/24 04:02 Blood Culture - Preliminary Blood 01/07/24 04:02 Blood Culture - Preliminary Blood Procedures/Treatments: None Discharge Plan Discharge Attending physician on discharge: Miya Scales Discharging Clinician: Aleja Gregg Anticipated Discharge Date/Time: 01/08/24 10:39 Patient Disposition: Home, Self-Care Activity: as tolerated Diet: as tolerated and regular Discharge Instructions: * You are being prescribed Augmentin and Azithromycin which both can be used during . Your baby however can develop a rash, thrush, diarrhea or vomiting with use of this combo. If that happens, switch to bottle feeds until you are finished with antibiotics. * You are being prescribed a Medrol dose pack, this is also safe for use however it is recommended to hold 2-4 hours after dose. You can take all of your pills at one time in the morning instead of spreading them out through the day as indicated on the package. If you get stomach upset from taking all at once then I suggest spreading them through the day and holding off of breast feeding until dose complete. * I prescribed an albuterol rescue inhaler for you. Take this every 6 hours as needed. Do not overuse this medication. If albuterol inhaler is not helping, do a breathing treatment. * I ordered a nebulizer with Duoneb solution which you have been getting here. This has been sent to your pharmacy. Patient Instructions: Antibiotic Form, Albuterol (By mouth), Amoxicillin/Clavulanate Potassium (By mouth), Azithromycin (By mouth), Methylprednisolone (By mouth), Ipratropium/Albuterol (By breathing), Asthma (DC) Patient Language: Citizen Of [place] Stand Alone Forms: General Discharge Information Follow-up/Referrals: UNKNOWN,DOCTOR [Primary Care Provider] - 1 Week Discharge Medications: New albuterol sulfate 90 mcg/actuation aerosol powdr breath activated 1 inh inhalation Q4-6H PRN (Reason: shortness of breath or wheezing) Qty: 1 0RF azithromycin 500 mg tablet 500 mg PO DAILY 4 Days Qty: 4 0RF amoxicillin-pot clavulanate 875-125 mg tablet 1 tablet PO Q12H Qty: 12 0RF ipratropium bromide 0.02 % solution 2.5 ml inhalation Q6H PRN (Reason: shortness of breath or wheezing) Qty: 75 0RF (DME) nebulizer and compressor [Comp-Air Nebulizer Compressor] Device See Rx Instructions .Route Qty: 1 0RF Rx Instructions: As directed (DME) nebulizer accessories Kit See Rx Instructions .Route Qty: 1 0RF Rx Instructions: As directed methylprednisolone [Medrol ([facility])] 4 mg tablets,dose pack See Rx Instructions .ROUTE .COMPLEX Qty: 21 0RF Rx Instructions: orally per package directions Discontinued albuterol sulfate 90 mcg/actuation HFA aerosol inhaler 90 mcg INHALATION PRN PRN (Reason: Shortness Of Breath Or Wheezing) Date of admission: 01/07/24 03:23 Primary Care Provider: UNKNOWN,DOCTOR Admitting Provider: Sadia Davenport Attending physician on admission: Aleja Gregg Condition: Improved Quality VTE Prophylaxis VTE prophylaxis: pharmacologic ordered Hospitalist MIPS Heart Failure (Exclusion) Patient has history of Heart Transplant or Left Ventricular Assistive Device?: No IF YES, STOP HERE Heart Failure (Qualifier) Patient has current or prior documentation of LVEF less than or equal to 40%, or mod/servere depressed LVSF?: No IF NO, STOP HERE
== END 2024-01-08 12:10 | disposition home or self-care (01) ==
LOC: ANHED 01-07 03:13 → ANH3MEDSUR 01-07 04:44
PROVIDERS: Physician Assistant; Admitting Provider Internal Medicine; Emergency Provider Physician Assistant; Visit Provider Nurse Practitioner Acute Care
DX: A41.9 Sepsis, unspecified organism (principal); J18.9 Pneumonia, unspecified organism; J45.901 Unspecified asthma with (acute) exacerbation; Z20.822 Contact with and (suspected) exposure to COVID-19
CPT/HCPCS: 36415; 71046; 71275; 80053; 81025; 84484; 85025; 85380; 85610; 85730; 87040; 87637; 87641; 93005; 94640; 96361; 96365; 96367; 96372; 96375; 99285; A9270; G0378; G0379; J0456; J0696; J1650; J2405; J7030; J7512; Q9967